=== PATIENT | male | born 1970 | race Caucasian/White ===

== ENCOUNTER 2018-07-16 09:17 | Emergency (ER) | payer OTHER ==
[2018-07-16 10:09] VITALS: PULSE 75; O2SAT 100
[2018-07-16] MEDS ORDERED: TORAdol 30 mg Injection IV ONE (10:34)
--- NOTE | 2018-07-16 10:40 | ERPHSYRPT ---
- History of Present Illness Time Seen by Provider: 07/16/18 10:28 Historian: patient Exam Limitations: no limitations Patient Subjective Stated Complaint: lifting a piece of equipment at work and felt pain in left groin area. area is continuing to hurt. Triage Nursing Assessment: ambulated to room per self. skin w/d, color normal. guarding left lower abd. area tender. Physician History: 47-year-old white male previously healthy arrives with complaint of pain in his left groin states he feels like there is a bulging in his left groin which began this morning when moving a motor at work. Patient states he felt like he had a bulge in the groin he feels like it is better now however he continues to have pain in the area. He has no nausea no vomiting. . Past medical history includes negative past surgical history includes orthopedic surgery, neck fusion surgery. Timing/Duration: today Activities at Onset: other (patient states he was pulling a motor) Quality: aching Abdominal Pain Onset Location: LLQ Pain Radiation: no radiation Severity of Pain-Max: moderate Severity of Pain-Current: moderate Modifying Factors: Improves With: nothing Associated Symptoms: No back, No chest pain, No diaphoresis, No diarrhea, No fever/chills, No fatigue, No headache, No heartburn, No loss of appetite, No nausea, No neck pain, No shortness of breath, No syncope, No testicular pain, No vomiting, No weakness Previous symptoms: no prior history Allergies/Adverse Reactions: No Known Drug Allergies Allergy (Unverified 07/16/18 10:09) Hx Tetanus, Diphtheria Vaccination/Date Given: Yes Hx Influenza Vaccination/Date Given: No Hx Pneumococcal Vaccination/Date Given: No - Review of Systems Constitutional: No Fever, No Chills Eyes: No Symptoms Ears, Nose, & Throat: No Symptoms Respiratory: No Cough, No Dyspnea Cardiac: No Chest Pain, No Edema, No Syncope Abdominal/Gastrointestinal: Abdominal Pain (left lower quadrant abdominal pain) , Other (patient feels like he has a bulging in his left lower quadrant) Genitourinary Symptoms: No Dysuria Musculoskeletal: No Back Pain, No Neck Pain Skin: No Rash Neurological: No Dizziness, No Focal Weakness, No Sensory Changes Psychological: No Symptoms Endocrine: No Symptoms All Other Systems: Reviewed and Negative - Past Medical History Pertinent Past Medical History: No - Past Surgical History Past Surgical History: Yes Musculoskeletal: Orthopedic Surgery Other Surgical History: neck fusion surgery - Social History Smoking Status: Current every day smoker Exposure to second hand smoke: No Drug Use: none Patient Lives Alone: No - Nursing Vital Signs Nursing Vital Signs: Initial Vital Signs Temperature 97.7 F 07/16/18 09:48 Pulse Rate 75 07/16/18 09:48 Respiratory Rate 16 07/16/18 09:48 Blood Pressure 155/98 07/16/18 09:48 O2 Sat by Pulse Oximetry 100 07/16/18 09:48 Pain Scale Pain Intensity 3 - Physical Exam General Appearance: mild distress, alert Eye Exam: PERRL/EOMI, eyes nml inspection Ears, Nose, Throat Exam: normal ENT inspection, pharynx normal, moist mucous membranes Neck Exam: normal inspection, non-tender, supple, full range of motion Respiratory Exam: normal breath sounds, lungs clear, No respiratory distress Cardiovascular Exam: regular rate/rhythm, normal heart sounds, capillary refill <2 sec, edema Gastrointestinal/Abdomen Exam: soft, normal bowel sounds, tenderness (left lower quadrant tenderness) Back Exam: normal inspection, normal range of motion, No CVA tenderness, No vertebral tenderness Extremity Exam: normal inspection, normal range of motion, pelvis stable Neurologic Exam: alert, oriented x 3, cooperative, 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 Moderate retained feces in the transverse colon and right colon. 2. Normal appendix.) Ordered Tests: Active Orders 24 hr Category Date Time Status IV Insertion STAT Care 07/16/18 10:34 Active ABDOMEN AND PELVIS W/0 CONTRAS [CT] Stat Exams 07/16/18 10:35 Taken CBC W DIFF Stat Lab 07/16/18 10:44 Completed CMP Stat Lab 07/16/18 10:44 Completed UA W/RFX UR CULTURE Stat Lab 07/16/18 10:45 Completed Medication Summary Discontinued Medications Generic Name Dose Route Start Last Admin Trade Name Freq PRN Reason Stop Dose Admin Ketorolac Tromethamine 30 mg 07/16/18 10:34 07/16/18 11:22 Toradol 30 Mg Injection IV 07/16/18 10:35 30 mg STAT ONE Administration Ketorolac Tromethamine Confirm 07/16/18 10:50 Toradol 30 Mg Injection Administered 07/16/18 10:51 Dose 30 mg .ROUTE .[facility] Lab/Rad Data: Laboratory Result Diagrams 07/16/18 10:44 07/16/18 10:44 Laboratory Results 07/16/18 07/16/18 07/16/18 Range/Units 10:45 10:44 10:44 WBC 6.7 (4.0-10.5) K/mm3 RBC 4.85 (4.1-5.6) M/mm3 Hgb 14.4 (12.5-18.0) gm/dl Hct 44.4 (42-50) % MCV 91.5 (78-100) fl MCH 29.7 (26-32) pg MCHC 32.4 (32-36) g/dl RDW 15.5 H (11.5-14.0) % Plt Count 320 (150-450) K/mm3 MPV 9.5 (6-9.5) fl Gran % 50.9 (36.0-66.0) % Eos # (Auto) 0.36 (0-0.5) Absolute Lymphs (auto) 2.16 (1.0-4.6) Absolute Monos (auto) 0.70 (0.0-1.3) Lymphocytes % 32.4 (24.0-44.0) % Monocytes % 10.5 (0.0-12.0) % Eosinophils % 5.4 H (0.00-5.0) % Basophils % 0.8 (0.0-0.4) % Absolute Granulocytes 3.39 (1.4-6.9) Basophils # 0.05 (0-0.4) Sodium 141 (137-145) mmol/L Potassium 4.2 (3.5-5.1) mmol/L Chloride 104 (98-107) mmol/L Carbon Dioxide 31 H (22-30) mmol/L Anion Gap 11.4 (5-15) MEQ/L BUN 15 (9-20) mg/dL Creatinine 0.89 (0.66-1.25) mg/dL Estimated GFR > 60.0 ML/MIN Glucose 134 H (74-106) mg/dL Calcium 9.2 (8.4-10.2) mg/dL Total Bilirubin 0.40 (0.2-1.3) mg/dL AST 98 H (17-59) U/L ALT 99 H (0-50) U/L Alkaline Phosphatase 51 (38-126) U/L Serum Total Protein 7.4 (6.3-8.2) g/dL Albumin 4.0 (3.5-5.0) g/dL Urine Color STRAW (YELLOW) Urine Appearance CLEAR (CLEAR) Urine pH 5.0 (5-6) Ur Specific Lamont 1.023 (1.005-1.025) Urine Protein NEGATIVE (Negative) Urine Ketones TRACE (NEGATIVE) Urine Blood NEGATIVE (0-5) Victoriano/ul Urine Nitrite NEGATIVE (NEGATIVE) Urine Bilirubin NEGATIVE (NEGATIVE) Urine Urobilinogen NEGATIVE (0-1) mg/dL Ur Leukocyte Esterase NEGATIVE (NEGATIVE) Urine WBC (Auto) NONE (0-5) /HPF Urine Culture Reflexed NO (NO) Urine Glucose >=500 (NEGATIVE) mg/dL - Progress Progress: improved Progress Note: 07/16/18 10:39 47-year-old white male who states that he injured his left groin by pulling on a motor at work. Patient states that he had a large bulge in his left groin he feels like it is still quite tender in the area. I really can't feel a hernia this time but patient states he should severe and feels like if he stands up he will have this bulging began in his groin. When I ask him if he's ever had a hernia before he says he doesn't think so but he is not sure if he did when he was a child. Will go ahead and order CBC CMP UA and CT abdomen. We'll give patient Toradol for pain. 07/16/18 12:[address] of the abdomen impression 1. Moderate retained feces in the transverse colon and right colon 2. Normal appendix I've asked virtual to look at of CT is again for possible hernia, they state that there is mild heterogenous increased soft tissue in the left inguinal canal of uncertain etiology without definite bowel herniation or fat herniation. Will send patient home he did receive Toradol here in the emergency room. He is to have no of strenuous pushing pulling lifting more than 5 pounds Will send him home for today and tomorrow patient to follow-up with his company physician Wednesday. he may take Advil every 6 hours for pain as well. 07/16/18 12:54 I had originally consider sending patient home and have him follow-up with his company doctor on Wednesday 2 days from now. The patient really does not want to miss any work therefore I've written for restrictions for the patient he is to have no strenuous pushing pulling or lifting more than 5 pounds for 48 hours. He is to follow-up with his company physician on Wednesday. I also written for Graham 5/325 #10 one orally every 6 hours as needed for pain. The patient does not want Graham he will take Advil instead he has returned the prescription (paper form)which has been voided and will be destroyed. - Departure Departure Disposition: Home Clinical Impression: left groin strain, Left groin pain Condition: Fair Critical Care Time: No Referrals: DOCTOR,NO FAMILY [Primary Care Provider] - Instructions: Groin Strain (DC) Additional Instructions: Return home. Cold packs to area 24-48 hours. No strenuous pulling pushing. No lifting more than 5 pounds Follow-up with your company physician Wednesday. Advil every 6 hours ([id number] 2-3 tablets) as needed for pain. Return for acute distress or for severe symptoms.
[2018-07-16 10:47] LABS: BASOPHIL % 0.8 % (0.0-0.4); Basophil (Absolute #) 0.05 (0-0.4); Eosinophil % 5.4 % (0.00-5.0); Eosinophil (Absolute #) 0.36 (0-0.5); Granulocyte Absolute (ANC) 3.39 (1.4-6.9); Granulocytes % 50.9 % (36.0-66.0); Hematocrit 44.4 % (42-50); Hemoglobin 14.4 gm/dl (12.5-18.0); Lymphocyte (Absolute #) 2.16 (1.0-4.6); Lymphocytes % 32.4 % (24.0-44.0); Mean Cell Volume 91.5 fl (78-100); Mean Corpuscular Hemoglobin 29.7 pg (26-32); Mean Corpuscular Hgb Concent. 32.4 g/dl (32-36); Mean Platelet Volume 9.5 fl (6-9.5); Monocytes % 10.5 % (0.0-12.0); Platelet Count 320 K/mm3 (150-450); Red Blood Count 4.85 M/mm3 (4.1-5.6); Red Cell Distribution Width 15.5 % (11.5-14.0); White Blood Count 6.7 K/mm3 (4.0-10.5)
[2018-07-16] MEDS ORDERED: TORAdol 30 mg Injection ONE (10:50)
[2018-07-16 10:57] LABS: ALKALINE PHOSPHATASE 51 U/L (38-126); ANION GAP 11.4 MEQ/L (5-15); BLOOD UREA NITROGEN 15 mg/dL (9-20); CHLORIDE 104 mmol/L (98-107); Calcium 9.2 mg/dL (8.4-10.2); Carbon Dioxide 31 mmol/L (22-30); Creatinine 1 0.89 mg/dL (0.66-1.25); Glucose 134 mg/dL (74-106); Potassium 4.2 mmol/L (3.5-5.1); SGOT/AST 98 U/L (17-59); SGPT/ALT 99 U/L (0-50); SODIUM 141 mmol/L (137-145); Total Protein 7.4 g/dL (6.3-8.2)
[2018-07-16 11:02] LABS: Appearance CLEAR (CLEAR); Bilirubin NEGATIVE (NEGATIVE); Blood NEGATIVE Ery/ul (0-5); Glucose >=500 mg/dL (NEGATIVE); Ketones TRACE (NEGATIVE); Leukocyte Esterase NEGATIVE (NEGATIVE); Nitrite NEGATIVE (NEGATIVE); Protein,Urine Dip NEGATIVE (Negative); Specific Gravity 1.023 (1.005-1.025); Urobilinogen NEGATIVE mg/dL (0-1)
[2018-07-16 11:32] VITALS: BP 133/96
--- NOTE | 2018-07-16 17:45 | XRAY ---
Indication: Left lower quadrant pain. Multiple contiguous axial images obtained through the abdomen and pelvis without contrast as ordered. Comparison: None Lung bases are clear. Heart is not enlarged. Noncontrasted stomach and bowel loops appear nonobstructed. Normal appendix. No free fluid/air. There is mild diffuse scattered colonic fecal debris throughout including rectum. Remaining liver, gallbladder, pancreas, spleen, adrenal glands, kidneys, ureters, bladder, and aorta appear unremarkable for noncontrast exam. Osseous structures intact with mid lumbar degenerative changes. Impression: 1. Mild diffuse fecal stasis without obstruction. 2. No acute intra-abdominal/pelvic abnormalities on this noncontrast exam. Comment: Preliminary interpretation was made by [facility]. No critical discrepancy. CTDI 14.71
== END 2018-07-16 12:30 | disposition home or self-care (01) ==
LOC: ED 09:17
DX: S39.011A Strain of muscle, fascia and tendon of abdomen, initial encounter (principal); R10.32 Left lower quadrant pain; X50.0XXA Overexertion from strenuous movement or load, initial encounter; X50.9XXA Other and unspecified overexertion or strenuous movements or postures, initial encounter; Y92.89 Other specified places as the place of occurrence of the external cause; Y99.0 Civilian activity done for income or pay
CPT/HCPCS: 36000; 36415; 74176; 80053; 81001; 85025; 96374; 99284; J1885